=== PATIENT | female | born 1960 | race Caucasian/White ===

== ENCOUNTER 2021-04-02 19:45 | Inpatient (IN) | payer OTHER ==
[~2021-04-02] VITALS: Ht 160 cm; Wt 95.0 kg
[2021-04-02 23:31] LABS: HEMOGLOBIN 11.5 gm/dl (12.3-15.3); RED BLOOD COUNT 3.89 M/UL (4.00-5.10); WHITE BLOOD COUNT 7.4 K/UL (4.5-11.0)
[2021-04-03 05:43] LABS: HEMOGLOBIN 11.4 gm/dl (12.3-15.3); RED BLOOD COUNT 3.85 M/UL (4.00-5.10); WHITE BLOOD COUNT 6.7 K/UL (4.5-11.0)
[2021-04-03] MEDS ORDERED: ATORVASTATIN CA80 MG PO (13:02)
[2021-04-03] MEDS ORDERED: ENTRESTO 24 MG1 EACH PO (13:02)
[2021-04-03] MEDS ORDERED: TRULICITY0.75 MG/0. SQ (13:02)
[2021-04-03] MEDS ORDERED: ASPIRIN81 MG PO (13:02)
[2021-04-03] MEDS ORDERED: CLOPIDOGREL75 MG PO (13:03)
[2021-04-03] MEDS ORDERED: BUMETANIDE1 MG PO (13:03)
[2021-04-04 07:23] LABS: HEMOGLOBIN 10.5 gm/dl (12.3-15.3); RED BLOOD COUNT 3.66 M/UL (4.00-5.10); WHITE BLOOD COUNT 5.5 K/UL (4.5-11.0)
[2021-04-05 04:38] LABS: HEMOGLOBIN 10.7 gm/dl (12.3-15.3); RED BLOOD COUNT 3.71 M/UL (4.00-5.10); WHITE BLOOD COUNT 5.4 K/UL (4.5-11.0)
[2021-04-05 08:13] LABS: ANTISTREPTOLYSIN O AB 50.5 IU/mL (0.0-200.0); COMPLEMENT C3, SERUM 128 mg/dL (82-167); COMPLEMENT C4, SERUM 34 mg/dL (12-38)
[2021-04-05 09:13] LABS: HBSAG SCREEN Negative (Negative); HEP B CORE AB, TOT Negative (Negative); HEP C VIRUS AB <0.1 (0.0-0.9)
[2021-04-05 12:13] LABS: ANTI-DSDNA ANTIBODIES <1 IU/mL (0-9)
[2021-04-05 15:13] LABS: A/G RATIO 1.1 (0.7-1.7); ALPHA-1-GLOBULIN 0.3 g/dL (0.0-0.4); ALPHA-2-GLOBULIN 0.7 g/dL (0.4-1.0); BETA GLOBULIN 0.9 g/dL (0.7-1.3); GLOBULIN, TOTAL 2.9 g/dL (2.2-3.9); IMMUNOGLOBULIN A, QN, SERUM 263 mg/dL (87-352); IMMUNOGLOBULIN G, QN, SERUM 952 mg/dL (586-1602); IMMUNOGLOBULIN M, QN, SERUM 50 mg/dL (26-217); M-SPIKE Not Observed g/dL (Not Observed); PROTEIN, TOTAL, SERUM 5.9 g/dL (6.0-8.5)
[2021-04-05 19:01] LABS: HEMOGLOBIN 10.9 gm/dl (12.3-15.3); RED BLOOD COUNT 3.77 M/UL (4.00-5.10); WHITE BLOOD COUNT 6.1 K/UL (4.5-11.0)
[2021-04-06 04:54] LABS: HEMOGLOBIN 10.1 gm/dl (12.3-15.3); RED BLOOD COUNT 3.52 M/UL (4.00-5.10); WHITE BLOOD COUNT 5.2 K/UL (4.5-11.0)
[2021-04-06 16:14] LABS: ATYPICAL PANCA <1:20 titer (Neg:<1:20); CYTOPLASMIC (C-ANCA) 1:20 titer (Neg:<1:20); PERINUCLEAR (P-ANCA) <1:20 titer (Neg:<1:20)
[2021-04-07 05:19] LABS: HEMOGLOBIN 10.4 gm/dl (12.3-15.3); RED BLOOD COUNT 3.66 M/UL (4.00-5.10); WHITE BLOOD COUNT 5.5 K/UL (4.5-11.0)
[2021-04-08 05:15] LABS: HEMOGLOBIN 10.1 gm/dl (12.3-15.3); RED BLOOD COUNT 3.44 M/UL (4.00-5.10); WHITE BLOOD COUNT 6.5 K/UL (4.5-11.0)
[2021-04-08] MEDS ORDERED: LOPRESSOR 25 MG25 MG PO (12:20)
[2021-04-08] MEDS ORDERED: ISOSORBIDE MONO30 MG PO (12:20)
[2021-04-08] MEDS ORDERED: LASIX40 MG PO (12:20)
== END 2021-04-08 14:00 | disposition home or self-care (01) | DRG 246 ==
LOC: CCU 23:02 → MED SURG 4 04-08 02:48
PROVIDERS: Internal Medicine; Internal Medicine Cardiovascular Disease; Internal Medicine Interventional Cardiology; Internal Medicine Nephrology; ADMIT Internal Medicine
PROC: B24BZZZ Ultrasonography of Heart with Aorta (ICD-10-PCS; principal; 2021-04-03)
PROC: 027034Z Dilation of Coronary Artery, One Artery with Drug-eluting Intraluminal Device, Percutaneous Approach (ICD-10-PCS; 2021-04-05)
PROC: 4A023N7 Measurement of Cardiac Sampling and Pressure, Left Heart, Percutaneous Approach (ICD-10-PCS; 2021-04-05)
PROC: B2111ZZ Fluoroscopy of Multiple Coronary Arteries using Low Osmolar Contrast (ICD-10-PCS; 2021-04-05)
DX: I21.4 Non-ST elevation (NSTEMI) myocardial infarction (principal); J96.21 Acute and chronic respiratory failure with hypoxia; I50.43 Acute on chronic combined systolic (congestive) and diastolic (congestive) heart failure; Z20.822 Contact with and (suspected) exposure to COVID-19; N17.9 Acute kidney failure, unspecified; I13.0 Hypertensive heart and chronic kidney disease with heart failure and stage 1 through stage 4 chronic kidney disease, or unspecified chronic kidney disease; E78.5 Hyperlipidemia, unspecified; J44.9 Chronic obstructive pulmonary disease, unspecified; E11.22 Type 2 diabetes mellitus with diabetic chronic kidney disease; E66.9 Obesity, unspecified; H53.8 Other visual disturbances; D63.1 Anemia in chronic kidney disease; N18.32 Chronic kidney disease, stage 3b; G47.33 Obstructive sleep apnea (adult) (pediatric); I25.10 Atherosclerotic heart disease of native coronary artery without angina pectoris; Z95.5 Presence of coronary angioplasty implant and graft; Z79.82 Long term (current) use of aspirin; Z83.3 Family history of diabetes mellitus; Z87.891 Personal history of nicotine dependence; I25.2 Old myocardial infarction; Z68.37 Body mass index [BMI] 37.0-37.9, adult
CPT/HCPCS: ECHO; 36415; 71045; 80048; 80053; 80061; 81001; 82550; 82553; 82570; 82607; 82784; 82962; 83036; 83520; 83540; 83550; 83605; 83735; 83880; 83883; 84100; 84133; 84155; 84156; 84165; 84300; 84439; 84443; 84484; 85025; 85027; 85610; 85652; 85730; 86038; 86060; 86140; 86160; 86162; 86225; 86256; 86334; 86704; 86706; 86708; 86803; 87340; 89050; 93005; 93306; 94760; 97116-GP-CQ; 97161; 97165; 99152; 99153; C1725; C1769; C1874; C1887; C9600; J0461; J0583; J1250; J1644; J1940; J2250; J3010; J7040; Q9965; U0002